=== PATIENT | female | born 1985 | race Caucasian/White ===

== ENCOUNTER 2022-07-13 09:48 | Inpatient (IN) | payer OTHER, SELFPAY ==
[2022-07-13] VITALS (25 sets, daily range): BP systolic 98–133; BP diastolic 57–75; PULSE 61–90; RESP 16–20; TEMP 36.3–36.8; O2SAT 94–100; BMI 47.8
[2022-07-13 10:49] LABS: Basophils Percent Auto 0.2 % (0.0-3.0); Eosinophils Percent Auto 0.6 % (0.0-7.0); Hematocrit 33.6 % (33.0-51.0); Hemoglobin* 11.4 gm/dL (12.0-16.0); Immature Granulocytes Pct Auto 5.8 %; Lymphocytes Percent Auto 9.4 % (20-44); Mean Corpuscular HGB Conc 34 gm/dL (32-36); Mean Corpuscular Hemoglobin 30 pg (26-34); Mean Corpuscular Volume 87 fL (80-100); Monocytes Percent Auto 6.5 % (0.0-11.0); Platelet Count* 202 K/uL (140-440); RDW Coefficient of Variation % 14.5 % (11.5-15.5); Red Blood Count 3.86 m/uL (4.00-5.20); White Blood Count* 12.58 K/uL (4.50-11.00)
[2022-07-13 11:21] LABS: Neutrophils Percent Auto 77.5 % (42.0-72.0)
[2022-07-13 11:22] LABS: Slide Review Reflex No
[2022-07-13 11:35] LABS: SARS PCR* Negative SARS-CoV-2 (Negative)
[2022-07-13] MEDS: LACTATED RINGERS 1000 ML 1,000 ML 125 ML IV ×3 (11:55→21:22)
[2022-07-13] MEDS: CEFAZOLIN 3 GM in 0.9 % SODIUM CHLORIDE Mini-bag 100 ML IVPB (11:55)
--- NOTE | 2022-07-13 11:57 | W.ANESCHARGE ---
Anesthesia Charges Start Date/Time Anesthesia Start Date: 07/13/22 Anesthesia Start Time: 11:43 Stop Date/Time Anesthesia Stop Date: 07/13/22 Anesthesia Stop Time: 13:23
[2022-07-13] MEDS: KETOROLAC 30 MG/ML inj IVP ×2 (13:00→19:25)
--- NOTE | 2022-07-13 13:03 | W.ANESCHARGE ---
Anesthesia Charges Start Date/Time Anesthesia Start Date: 07/13/22 Anesthesia Start Time: 11:43 Stop Date/Time Anesthesia Stop Date: 07/13/22 Anesthesia Stop Time: 13:23
--- NOTE | 2022-07-13 13:13 | PM.OBPRCCS ---
Procedure Pre-op/Post-op diagnoses: Pre-Op/Post-Op Diagnoses Operation Date: 07/13/22 11:45 <No data on this case meets the specified criteria> Procedure Done: only ([facility] patient) Procedure Details: Procedures Operation Date: 07/13/22 11:45 Actual Procedure Side Surgeon p Repeat Section Kitty Alvarado MD Estimated blood loss (mL): 494 Disposition: floor Anesthesia type: TAP block Complications: None. Narrative: PREOPERATIVE DIAGNOSES: 1. Intrauterine at 39 3/7 weeks' gestation. 2. History of prior low transverse section x1, desiring repeat. 3. History of macrosomia. POSTOPERATIVE DIAGNOSES: 1. Intrauterine at 39 3/7 weeks' gestation. 2. History of prior low transverse section x1, desiring repeat. 3. macrosomia. NAME OF PROCEDURE: Repeat low transverse section. Lysis of adhesions. SURGEON: Christiano. ANESTHESIA: Spinal. COMPLICATIONS: None. ESTIMATED BLOOD LOSS: 494 mL. DRAINS: Duff to gravity. FINDINGS: Live-born female infant, cephalic presentation, Apgars 7 and 8 at 1 and 5 minutes respectively. weight 10 lb 10 oz. Normal appearinguterus, tubes, and ovaries. Moderate adhesions between fascia rectus muscles peritoneum. PROCEDURE: After obtaining informed consent, the patient was taken to the operating room where spinal anesthesia was obtained and found to be adequate. She was prepared and draped in the normal sterile fashion in the dorsal supine position with a leftward tilt. A Pfannenstiel skin incision was made with a scalpel just below the line of the patient's previous Pfannenstiel scar. This incision was carried down to the underlying layer of fascia with the Bovie. The fascia was incised in the midline and the incision extended laterally. The superior and inferior aspects of the fascial incision were grasped with Kinjal clamps, elevated and the underlying rectus muscles dissected off sharply and with electrocautery. This dissection took an increased amount of time given the dense adhesions. The rectus muscles were then in the midline. The Seb O retractor was then placed into the incision. The lower uterine segment was then incised in a transverse fashion with the scalpel. Upon entry into the uterus, copious clear amniotic fluid was noted. The uterine incision was extended laterally with blunt finger fractionation. The 's head was delivered atraumatically, followed by the remainder of the 's body. The nose and mouth were suctioned with the bulb suction. The cord was doubly clamped and cut, and the infant was handed off the field for evaluation. The placenta was delivered spontaneously with umbilical cord traction and fundal massage. The uterus was cleared of all clots and debris. The uterine incision was reapproximated in a running locking fashion with a 0 chromic suture. A 2nd layer of the same suture was used to imbricate in horizontal fashion. The gutters were irrigated and suctioned. All instruments and retractors were removed. The anterior peritoneum was reapproximated in a running fashion with a 3-0 Vicryl suture. The subfascial tissues were carefully inspected and hemostasis assured. The fascia was reapproximated in a running fashion with a looped 0 Maxon suture. The subcutaneous tissues were copiously irrigated. Hemostasis was assured. The subcutaneous fat layer was reapproximated with interrupted sutures of 3-0 plain gut. The skin was closed in a subcuticular fashion with 4-0 Vicryl. A silver Mepilex dressing was applied. A TAP block was then administered by Anesthesia. The patient tolerated the procedure well. Sponge, lap, needle, and instrument counts were reported as correct x2. The patient was taken to the recovery room, awake, and in stable condition. She did receive 3 grams of IV Ancef preoperatively and 30 mg of IV Toradol the conclusion of the procedure.
--- NOTE | 2022-07-13 13:27 | W.PM.NB ---
Nerve Block Nerve Block Time Seen by Provider: 13:10 Date Seen: 07/13/22 Type of block requested by surgeon for post-operative analgesia: TAP Time out performed: Yes Verification of patient name: Yes Verification of date of : Yes Site marking: site marked Name of person performing procedure: Manfred Continuous monitoring Was continuous monitoring of O2 sat, B/P, vehicle monitor technician, recorded every 15 minutes?: Yes Procedure Checklist: sterile prep, needles and gloves Ultrasound guided. Images saved: Yes Medications given in 5ml increments after negative aspiration: Marcaine %: 0.25 mL: 30 Needle gauge: 20 and Exparel mL: 10 Patient tolerated procedure well: Yes Additional comments: Needle noted adjacent to nerve Block Charges Block Charge (with Pro Fee): TAP Bilateral Use of Ultrasound Machine for Block: Yes- US Guidance/pain block
[2022-07-13] MEDS: ACETAMINOPHEN 500 MG TABLET 1000 MG PO ×2 (16:09→23:20)
[2022-07-13] MEDS: LACTATED RINGERS 1000 ML 500 ML IV (19:50)
[2022-07-13 20:00] LABS: Hematocrit 32.2 % (33.0-51.0); Hemoglobin* 10.7 gm/dL (12.0-16.0); Mean Corpuscular HGB Conc 33 gm/dL (32-36); Mean Corpuscular Hemoglobin 30 pg (26-34); Mean Corpuscular Volume 89 fL (80-100); Platelet Count* 204 K/uL (140-440); Red Blood Count 3.63 m/uL (4.00-5.20); White Blood Count* 15.41 K/uL (4.50-11.00)
[2022-07-13 20:24] LABS: Slide Review Reflex No
[2022-07-14] VITALS (9 sets, daily range): BP systolic 98–109; BP diastolic 64–74; PULSE 82–95; RESP 16–20; TEMP 36.8–37.1; O2SAT 92–98
[2022-07-14] MEDS: SIMETHICONE 80 MG TAB.CHEW PO ×2 (00:41→23:50)
[2022-07-14] MEDS: KETOROLAC 30 MG/ML inj IVP ×4 (02:25→20:27)
[2022-07-14] MEDS: OXYCODONE 5 MG TABLET PO ×5 (05:37→21:22)
[2022-07-14] MEDS: ACETAMINOPHEN 500 MG TABLET 1000 MG PO ×4 (05:38→23:36)
[2022-07-14 05:49] LABS: Hemoglobin* 10.2 gm/dL (12.0-16.0)
--- NOTE | 2022-07-14 07:59 | P.OBPN_ITS ---
OB - PN: A/P Assessment and Plan (1) care and examination immediately after delivery: Status: Acute (2) Lactating mother: Status: Acute (3) Status post repeat low transverse section: Status: Acute Plan May see if desired. Anticipate discharge POD 2 or 3 Plan day: 1 Plan: routine postop care OB - PN: Subj Subjective Date Seen: 07/14/22 Patient comments: no complaints and pain well controlled [place] status: feeding status: exclusively Narrative: Nu is a 36yo G2 now P2 at 39.2 weeks gestation s/p uncomplicated repeat section delivery. The patient feels well.? The pain is well controlled with current medications.? She has no new complaints.? She had decreased urine output yesterday that improved with IV fluid bolus. Today urinary output is adequate, aguillon catheter to be removed this morning.?Has a good appetite, is tolerating a general diet, is passing flatus, and has not yet had a bowel movement.? Has small amount of rubra lochia.? She is ambulating well. She is and reports difficulty with latch related to tongue tie. She is hoping for it to be clipped today.?She does desire to continue to work on her skills and see when able. Nursing staff will continue to work on with her. OB - PN: Obj Exam Physical Exam: Vital signs: Temp Pulse Resp BP Pulse Ox O2 Del Method 98.2 F 95 18 106/74 97 07/14/22 04:58 07/14/22 04:58 07/14/22 04:58 07/14/22 04:58 07/14/22 04:58 07/14/22 04:58 Narrative: GENERAL APPEARANCE:? normal affect, alert, no distress? MOOD:? appropriate? CHEST:? clear to auscultation? HEART:? regular rate and rhythm? ABDOMEN:? soft, non-tender the uterine fundus is 1 cm at Umbilicus, Midline and is appropriate for the stage of recovery.? INCISION: Silver nitrate dressing clean, dry and intact EXTREMITIES:? normal and 1+ edema? Urinary Catheter Management: Urethral: Cath placed during this visit: yes Urethral indwelling: Yes Reason for continuing: surgical procedure Insertion date: 07/13/22 OB - PN: Obj Data Labs Labs: Laboratory Results - last 24 hr 07/13/22 07/13/22 07/13/22 09:59 10:35 10:35 WBC RBC Hgb Cancelled Hct MCV MCH MCHC RDW Coeff of Marcelino Plt Count Neut % (Auto) Lymph % (Auto) [place] % (Auto) Eos % (Auto) Baso % (Auto) Neut # (Auto) Lymph # (Auto) [place] # (Auto) Eos # (Auto) Baso # (Auto) SARS-CoV-2 (PCR) Negative SARS-CoV-2 Blood Type A Positive Antibody Screen NEGATIVE 07/13/22 07/13/22 07/14/22 10:35 19:55 05:30 WBC 12.58 H 15.41 H RBC 3.86 L 3.63 L Hgb 11.4 L 10.7 L 10.2 L Hct 33.6 32.2 L MCV 87 89 MCH 30 30 MCHC 34 33 RDW Coeff of Marcelino 14.5 Plt Count 202 204 Neut % (Auto) 77.5 H Lymph % (Auto) 9.4 L [place] % (Auto) 6.5 Eos % (Auto) 0.6 Baso % (Auto) 0.2 Neut # (Auto) 9.70 H Lymph # (Auto) 1.20 [place] # (Auto) 0.80 Eos # (Auto) 0.10 Baso # (Auto) 0.00 SARS-CoV-2 (PCR) Blood Type Antibody Screen
[2022-07-14] MEDS: DOCUSATE SODIUM 100 MG CAPSULE PO ×2 (08:10→23:51)
--- NOTE | 2022-07-14 09:48 | P.NBPN_ITS ---
NB PN: HPI Service Date Date Seen: 07/14/22 Delivery Gender: Female Delivery Time: 12:19 Delivery Date: 07/13/22 Delivery Method: Repeat Section weight: 4.82 kg Weight: 118.66 kg Percent Weight Change: 2360.95 Length: 157.48 cm Weeks Gestation At Delivery (32.0 - 42.0): 39.2 Plan After Feeding plan: Human milk NB Vitals Data Weight/Weight Change Weight/Weight Change Weight 4.82 kg Weight 118.66 kg Recent Vital Signs Recent Vital Signs: Last Vital Signs Temp 98.4 F 07/14/22 08:12 Pulse 84 07/14/22 08:12 Resp 18 07/14/22 08:12 BP 104/68 07/14/22 08:12 Pulse Ox 92 07/14/22 08:12 O2 Del Method 07/14/22 08:12 NB Exam General Appearance: General Appearance: alert, active and no acute distress HEENT: HEENT: eyes open, pink ears, palate intact and anterior fontanelle flat/soft Comments: tongue tied to tip of tongue Neck: Neck: full range of motion and supple Respiratory: Respiratory: clear to auscultation bilaterally and normal air movement Cardiovasular: Cardiovascular: regular rate and regular rhythm Comments: no murmur Abdomen: Abdomen: normal bowel sounds and soft Umbilicus: Umbilicus: three vessels confirmed Genitourinary: Genitourinary: Yes normal genitalia and Yes anus patent Extremities: Extremities: five fingers each hand, five toes each foot and Ortolani and Denny signs negative bilaterally Comments: no sacral dimple or hair tuft Skin: Skin: Yes warm, Yes pink and Yes brisk capillary refill Neurology: Neurology: strength at 5/5 x 4 ext and startle reflex Results Labs Labs: Laboratory Results - last 24 hr 07/13/22 07/13/22 07/13/22 09:59 10:35 10:35 WBC RBC Hgb Cancelled Hct MCV MCH MCHC RDW Coeff of Marcelino Plt Count Neut % (Auto) Lymph % (Auto) [place] % (Auto) Eos % (Auto) Baso % (Auto) Neut # (Auto) Lymph # (Auto) [place] # (Auto) Eos # (Auto) Baso # (Auto) SARS-CoV-2 (PCR) Negative SARS-CoV-2 Blood Type A Positive Antibody Screen NEGATIVE 07/13/22 07/13/22 07/14/22 10:35 19:55 05:30 WBC 12.58 H 15.41 H RBC 3.86 L 3.63 L Hgb 11.4 L 10.7 L 10.2 L Hct 33.6 32.2 L MCV 87 89 MCH 30 30 MCHC 34 33 RDW Coeff of Marcelino 14.5 Plt Count 202 204 Neut % (Auto) 77.5 H Lymph % (Auto) 9.4 L [place] % (Auto) 6.5 Eos % (Auto) 0.6 Baso % (Auto) 0.2 Neut # (Auto) 9.70 H Lymph # (Auto) 1.20 [place] # (Auto) 0.80 Eos # (Auto) 0.10 Baso # (Auto) 0.00 SARS-CoV-2 (PCR) Blood Type Antibody Screen [place] A/P Assessment and plan (1) care and examination immediately after delivery: Status: Acute (2) Lactating mother: Status: Acute (3) Status post repeat low transverse section: Status: Acute
[2022-07-15 00:34] VITALS: BP 119/64; PULSE 91; RESP 16; TEMP 36.9; O2SAT 96
[2022-07-15] MEDS: OXYCODONE 5 MG TABLET PO ×5 (02:06→20:09)
[2022-07-15] MEDS: IBUPROFEN 600 MG TABLET PO ×4 (02:06→21:25)
[2022-07-15] MEDS: ACETAMINOPHEN 500 MG TABLET 1000 MG PO ×3 (05:46→18:34)
--- NOTE | 2022-07-15 08:30 | PM.OBPNCS1 ---
OB - PN: A/P Assessment and Plan (1) care and examination immediately after delivery: Status: Acute (2) Lactating mother: Status: Acute (3) Status post repeat low transverse section: Status: Acute Plan Routine cares Encourage stool softeners, activity and hydration Pain medications as prescribed Lidocaine patch near incision Discussed possible ligament, muscular or adhesions for cause of pain. Will continue to monitor. Lactating mother, may see nurse as needed Anticipate discharge tomorrow Plan day: 2 Plan: routine postop care OB - PN: Subj Subjective Time Seen by Provider: 08:15 Date Seen: 07/15/22 Interval history: Nu is a 36yo G2 now P2 at 39.2 weeks gestation s/p uncomplicated repeat section delivery The patient feels well.? The pain is well controlled with current medications.? She does complain of burning and pulling pain in left lower abdomen near the incision site. Pain is worse with movement and improves some with support of the abdomen. ? Urinary output is adequate, aguillon catheter to be removed today.? Has a good appetite, is tolerating a general diet, is passing flatus, and has not yet had a bowel movement.? Has small amount of rubra lochia.? She is ambulating well. She is and reports difficulty with latch related to tongue tie.?She does desire to continue to work on her skills and see today after pediatrics have seen infant. Patient comments: incisional pain, tolerating diet and flatus present status: and doing well feeding status: exclusively OB - PN: Obj Exam Physical Exam: Vital signs: Temp Pulse Resp BP Pulse Ox O2 Del Method 98.6 F 83 16 130/80 98 07/15/22 16:43 07/15/22 16:43 07/15/22 16:43 07/15/22 16:43 07/15/22 16:43 07/15/22 16:43 Narrative: GENERAL APPEARANCE:? normal affect, alert, no distress? MOOD:? appropriate? CHEST:? clear to auscultation? HEART:? regular rate and rhythm? ABDOMEN:? soft, non-tender the uterine fundus is At Umbilicus, Midline and is appropriate for the stage of recovery.? INCISION: ?Silver nitrate dressing in place, clean and dry with no discharge EXTREMITIES:? normal and 1+ edema? Urinary Catheter Management: Urethral: Cath placed during this visit: yes, but has since been removed by the nurse Urethral indwelling: Yes Reason for continuing: surgical procedure Insertion date: 07/13/22 Removal date: 07/14/22 Removal time: 08:00
[2022-07-15 08:36] VITALS: BP 124/79; PULSE 84; RESP 16; TEMP 36.7; O2SAT 97
[2022-07-15] MEDS: SIMETHICONE 80 MG TAB.CHEW PO (08:40)
[2022-07-15] MEDS: DOCUSATE SODIUM 100 MG CAPSULE PO (08:40)
[2022-07-15] MEDS: polyethylene glycoL 3350 17 GM PACK PO (09:04)
[2022-07-15] MEDS: LIDOCAINE 5% PATCH 1 PATCH TRANSDERMA (09:04)
[2022-07-15] MEDS: SENNOSIDES 1 TAB TABLET PO ×2 (09:42→21:25)
[2022-07-15 16:43] VITALS: BP 130/80; PULSE 83; RESP 16; TEMP 37; O2SAT 98
[2022-07-16 00:21] VITALS: BP 127/79; PULSE 80; RESP 18; TEMP 36.8; O2SAT 97
[2022-07-16] MEDS: OXYCODONE 5 MG TABLET PO ×3 (00:22→08:50)
[2022-07-16] MEDS: ACETAMINOPHEN 500 MG TABLET 1000 MG PO ×2 (03:46→10:14)
[2022-07-16] MEDS: IBUPROFEN 600 MG TABLET PO ×2 (06:23→12:01)
[2022-07-16 07:46] VITALS: BP 130/79; PULSE 79; RESP 18; O2SAT 97
--- NOTE | 2022-07-16 08:02 | PM.OBDSCS1 ---
DS: Providers Provider Time Seen by Provider: 08:02 Date Seen: 07/16/22 Date of admission: 07/13/22 09:48 Primary care physician: Krystle Wagner MD Admitting Clinician: Kitty Alvarado MD Attending Physician on discharge: Kitty Alvarado MD DS: Diagnosis Discharge Diagnosis (1) Status post repeat low transverse section: Status: Acute (2) care and examination immediately after delivery: Status: Acute (3) Lactating mother: Status: Acute Exam Narrative: Exam Narrative: VSS. ?Afebrile GENERAL APPEARANCE: ?normal affect, alert, no distress MOOD: ?appropriate HEENT: normocephalic, neck supple, full ROM CHEST: ?Symmetrical chest wall movement. ?Normal respiratory effort. ?Clear to auscultation HEART: ?regular rate and rhythm ABDOMEN: ?soft, non-tender. Uterine fundus is firm, just above Umbilicus, Midline and is appropriate for the stage of recovery. ?Bowel sounds present. EXTREMITIES: ?normal and [no] edema SKIN: warm, dry. ?Dressing on, clean/dry/intact ? ?No signs of infection noted. Const: Vital Signs, click to edit/add: Vital Signs - 24 hr 07/15/22 08:36 07/15/22 16:43 07/16/22 00:21 Temperature 98.1 F 98.6 F 98.2 F Pulse Rate [Left P ulse Oximeter] 84 83 80 Respiratory Rate 16 16 18 Blood Pressure [Le ft Arm] 124/79 130/80 127/79 Pulse Oximetry 97 98 97 Oxygen Delivery Me thod Room Air Room Air Room Air 07/16/22 07:46 Temperature Pulse Rate [Left P ulse Oximeter] 79 Respiratory Rate 18 Blood Pressure [Le ft Arm] 130/79 Pulse Oximetry 97 Oxygen Delivery Me thod Room Air Documenting provider has reviewed patient's vital signs: yes OB - DS: Summary Hospital Course Hospital Course: Nu is a 36 y.o. who was admitted to [facility] for repeat . ?She had an uncomplicated . ? The patient feels well. ?The pain is mostly well controlled with current medications. ?She had increased pain on the left side, but has noted some improvement since yesterday. She has no new complaints. ?She is breast feeding and reports things are going well.? the patient has done well.? Vitals have been stable.? She has remained afebrile.? Has a good appetite, is tolerating a general diet. ?She is voiding without difficulty.? She is passing gas and has not had a bowel movement. We reviewed medication to help with constipation.? She is ambulating and denies any dizziness.? Has Small - moderate amount of rubra lochia.??She states she did pass some golf ball size clots yesterday, and just now passed a few quarter sized with a gush of blood. Bleeding appears to have slowed at this time. Assessment/Plan G 2 P 2 status post uncomplicated repeat . 1. ?Discharge home today Will stay this am to continue to monitor bleeding. Reviewed what to watch for and when to call if occurs at home. 2. ?. ?Going well. May see if desired 3. ?Increased pain, especially on left side. Starting to improve. Reviewed medication for managing pain. 4. Constipation. Comfort measures reviewed, including medications colace and miralax. Peripartum Data Procedures: Procedures Operation Date: 07/13/22 11:45 Actual Procedure Side Surgeon p Repeat Section Kitty Alvarado MD complications: none [place] Infant Gender: Female Infant Discharge Plan: Home Status at Discharge Functional status at discharge: independent ambulation Overall status at discharge: patient is progressing back to baseline Time Spent with Patient Time attestation: Total time spent providing and/or coordinating discharge services: Time spent: Less than 30 minutes Discharge Plan Discharge Disposition: Home, Self-Care Date of Admission: 07/13/22 09:48 Attending Provider on Discharge: Nyla Arias Primary Care Provider: Krystle Wagner Condition: Stable Anticipated Discharge Date/Time: 07/16/22 12:39 Discharge Medications: New docusate sodium 100 mg Capsule 100 mg PO BID PRNQty: 100 0RF Rx Instructions: Take 1 cap 1-2 times a day if needed for constipation ibuprofen 600 mg Tablet 600 mg PO Q6H PRN (Reason: Pain) Qty: 60 0RF oxycodone 5 mg Tablet 5 - 10 mg PO Q4H PRN (Reason: Pain) Qty: 20 0RF Continued prenat.vits,yeny,[id number]-[id number]-jgspp Tablet 1 tab PO QDAY cholecalciferol (vitamin D3) 25 mcg (1,000 unit) capsule 25 mcg PO QDAY Saccharomyces boulardii [Probiotic (S.boulardii)] 250 mg capsule 5,000 mmu cells PO QDAY Discontinued aspirin 81 mg tablet,chewable 81 mg PO QDAY Discharge Orders: Discharge Order (Routine); Ordered 07/16/22 Ordered By: Nyla Arias Patient Education: OB Over the Counter Medication Information, OB /Breast Feeding Additional Instructions: No driving until you can comfortably slam on the brakes in an emergency and are not taking oxycodone Activity Level: Activity as Tolerated Discharge Diet: Regular Follow Up Appointments: Krystle Wagner MD [Primary Care Provider] - Forms: [facility] Info Instructions
[2022-07-16] MEDS: SENNOSIDES 1 TAB TABLET PO (08:49)
[2022-07-16] MEDS: DOCUSATE SODIUM 100 MG CAPSULE PO (08:50)
== END 2022-07-16 12:55 | disposition home or self-care (01) | DRG 788 ==
PROVIDERS: Obstetrics & Gynecology; Admitting Provider Obstetrics & Gynecology; PCP Family Medicine; Visit Provider Obstetrics & Gynecology
PROC: 10D00Z1 Extraction of Products of Conception, Low, Open Approach (ICD-10-PCS; CPT 59514; principal; 2022-07-13 11:45)
DX: O34.211 Maternal care for low transverse scar from previous cesarean delivery (principal); O36.63X0 Maternal care for excessive fetal growth, third trimester, not applicable or unspecified; Z3A.39 39 weeks gestation of pregnancy; Z37.0 Single live birth
CPT/HCPCS: 01961; 36415; 76942; 85018; 85025; 85027; 86850; 86900; 86901; 87635; A9270; C9290; J0690; J1885; J2274; J2370; J2405; J2590; J3490; J7120

== ENCOUNTER 2022-08-03 09:26 | Outpatient (CLI) | payer OTHER, SELFPAY | END 2022-08-03 09:27 | disposition home or self-care (01) | PROVIDERS: PCP Family Medicine; Visit Provider Obstetrics & Gynecology | DX: Z39.2 Encounter for routine postpartum follow-up (principal) | CPT/HCPCS: 87086 ==